=== PATIENT | female | born 1950 | race Caucasian/White ===

== ENCOUNTER 2018-06-28 10:24 | Emergency (ER) | payer MEDICARE, OTHER ==
[2018-06-28] MEDS: KETOROLAC 15 MG INJ IM (11:19)
== END 2018-06-28 11:59 | disposition home or self-care (01) ==
LOC: FTE 10:24
DX: J06.9 Acute upper respiratory infection, unspecified (principal); Z79.82 Long term (current) use of aspirin
CPT/HCPCS: 87400; 96372; 99284-25